=== PATIENT | female | born 1990 | race Caucasian/White ===

== ENCOUNTER 2017-01-16 15:24 | Emergency (ER) | payer OTHER ==
[~2017-01-16] VITALS: Ht 167.6 cm; Wt 89.9 kg
[~2017-01-16 15:24] MED LIST: MACROBID100 MG PO; MOTRIN800 MG PO
[2017-01-16] MEDS ORDERED: NORCO 5/3251 TABLET PO (18:22)
[2017-01-16] MEDS ORDERED: AMOXICILLIN875 MG PO (18:22)
[2017-01-16] MEDS ORDERED: MOTRIN600 MG PO (18:22)
[2017-01-16 18:34] VITALS: BP 119/75
== END 2017-01-16 18:35 | disposition home or self-care (01) ==
LOC: EME 15:24
DX: K02.9 Dental caries, unspecified (principal); F17.210 Nicotine dependence, cigarettes, uncomplicated
CPT/HCPCS: 99281; 99283